=== PATIENT | male | born 1990 | race African-American/Black ===

== ENCOUNTER 2021-03-05 13:34 | Emergency (ER) | payer BC ==
[2021-03-05 13:40] VITALS: BP 124/66; PULSE 67; TEMP 97; BMI 27.1
== END 2021-03-05 15:44 | disposition home or self-care (01) ==
LOC: JER 13:34 → JERFT 13:34
DX: M54.50 Low back pain, unspecified (principal); M25.561 Pain in right knee; M25.562 Pain in left knee
CPT/HCPCS: 36415; 86593; 86780; 99283-25